=== PATIENT | female | born 1990 | race Asian ===

== ENCOUNTER 2020-10-23 11:24 | Emergency (ER) | payer OTHER ==
[~2020-10-23] VITALS: Ht 172.7 cm; Wt 68.9 kg
--- NOTE | 2020-10-23 11:42 | NUR ---
The patient is bib her firend for c/o RLQ abdominal pain since tuesday. sent by to r/o appendicitis. The patient rates pain 2/10. Denies SOB. Respiration regular and unlabored. Patient is provided with a warm blanket. Will continue to monitor the patient.
[2020-10-23 12:16] LABS: BASOPHILS % (AUTO) 0.3 % (0.0-2.0); EOSINOPHILS % (AUTO) 0.8 % (0.0-6.0); HEMATOCRIT 36 % (33-45); HEMOGLOBIN 12.3 g/dL (11.5-14.8); LYMPHOCYTES % (AUTO) 25.8 % (20.0-44.0); MEAN CORPUSCULAR HGB CONC 34 g/dl (31.0-36.0); MEAN CORPUSCULAR VOLUME 95 fL (82-100); MONOCYTES # (AUTO) 0.3 /CMM (0.1-1.30); MONOCYTES % (AUTO) 8.1 % (2.0-12.0); NEUTROPHILS # (AUTO) 2.5 /CMM (1.8-8.9); PLATELET COUNT (AUTO) 198 /CMM (150-450); RED BLOOD CELL COUNT(AUTO) 3.77 MIL/uL (4.0-5.2); WHITE BLOOD COUNT (AUTO) 3.8 K/uL (4.3-11.0)
[2020-10-23 12:20] LABS: BILIRUBIN,URINE Negative (NEGATIVE); COLOR,URINE YELLOW (YELLOW); LEUKOCYTE ESTERASE ,URINE Negative (NEGATIVE); NITRITE, URINE Negative (NEGATIVE); PH,URINE 6.5 (5.0-8.0); PROTEIN,URINE Negative (NEGATIVE); UGLUCOSE Negative (NEGATIVE); UROBILINOGEN,URINE 0.2 EU/dL (0.2)
[2020-10-23 12:25] LABS: CALCIUM, SERUM 7.8 mg/dL (8.5-10.1); CREATININE 0.7 mg/dL (0.6-1.3); POTASSIUM 3.8 mmol/L (3.5-5.1)
[2020-10-23] MEDS ORDERED: IV NS 0.9% 1,000 ML BAG IV ONE (12:30)
[2020-10-23] MEDS ORDERED: ONDANSETRON HCL/PF - ER 4 MG/2 ML VIAL IV ONE (12:30)
[2020-10-23 12:38] LABS: ALBUMIN 3.3 g/dL (3.4-5.0); BILIRUBIN,TOTAL 0.2 mg/dL (0.2-1.0); TOTAL PROTEIN, SERUM 6.5 g/dL (6.4-8.2)
[2020-10-23] MEDS ORDERED: ONDANSETRON HCL/PF 4 MG/2 ML VIAL ONE (12:39)
--- NOTE | 2020-10-23 14:50 | NUR ---
The patient alert and oriented x4. Denies pain. In room air and denies SOB. Respiration regular and unlabored. The patient pending for discharge however, she did not want to wait for discharge papers and insisted leaving the hospital without discharge papers. Provided the patient with risks and benefits but the patient still want to leave without having discharge papers. The patient is provided verbal teaching and she verbalized understanding. The patient left ER in stable condition.
[2020-10-23 17:22] VITALS: BP 118/72
== END 2020-10-23 14:50 | disposition home or self-care (01) ==
LOC: ER 11:30 → EDBD 11:30 → ER 14:50
DX: R11.10 Vomiting, unspecified (principal)
CPT/HCPCS: 36415; 80053; 81003; 84702; 85025; 96361; 96374; 99283; J2405; J7030